=== PATIENT | female | born 1960 | race Caucasian/White ===

== ENCOUNTER 2024-09-14 12:42 | Emergency (ER) | payer OTHER ==
[~2024-09-14] VITALS: Ht 165.1 cm; Wt 52.8 kg
--- NOTE | 2024-09-14 13:12 | ELECTROCARDIOGRAPH REPORT ---
[facility] Test Date: 2024-09-14 Test Time: 13:10:16 Pat Name: ALMA EDEN Department: EMERGENCY ROOM Room: Gender: F Claim Inspector: : [id number] Requested By: DARIUS DOCKERY Order Number: [id number] Reading MD: Dr. Luis Lino Measurements Intervals [place] Rate: 71 P: 78 NH: 163 QRS: 82 QRSD: 83 T: 58 QT: 375 QTc: 408 Interpretive Statements Sinus rhythm Borderline right axis deviation Electronically Signed On 09-14-2024 18:22:[address] Luis Lino Please click the below link to view image of tracing.
[2024-09-14 13:18] LABS: BASOPHILS % (AUTO) 0.4 % (0-1); EOSINOPHILS # (AUTO) 0.2 X10'3 (0-0.9); EOSINOPHILS % (AUTO) 1.9 % (0-6); HEMATOCRIT 42.4 % (35.0-45.0); MEAN CORPUSCULAR HEMOGLOBIN 29.9 PG (27.0-31.0); MEAN CORPUSCULAR HGB CONC 33.1 g/dL (33.0-36.5); MEAN CORPUSCULAR VOLUME 90.1 FL (78-98); MEAN PLATELET VOLUME 9.2 FL (7.4-10.4); MONOCYTES # (AUTO) 0.9 X10'3 (0-0.9); MONOCYTES % (AUTO) 8.2 % (2-12); NEUTROPHILS # (AUTO) 7.4 X10'3 (1.8-7.7); NEUTROPHILS % (AUTO) 70.5 % (42-75); PLATELET COUNT 180 X10'3 (140-440); RED CELL DISTRIBUTION WIDTH 15.5 % (11.5-14.5); WHITE BLOOD COUNT 10.4 X10'3 (4.5-11.0)
[2024-09-14 13:30] LABS: ALBUMIN 3.7 G/DL (3.4-5.0); BLOOD UREA NITROGEN 16 MG/DL (7-18); BUN/CREATININE RATIO 15.7 (10.0-20.0); CALCIUM 9.5 MG/DL (8.5-10.1); CHLORIDE 104 MMOL/L (99-107); CREATININE 1.02 MG/DL (0.40-0.90); GLUCOSE 111 MG/DL (70-104); POTASSIUM 3.4 MMOL/L (3.5-5.1); TOTAL CARBON DIOXIDE 29.5 MMOL/L (24-32); eCRCL 47 ML/MIN; eGFR 55 ML/MIN
[2024-09-14 13:40] LABS: ANION GAP 6 (8-16); SODIUM 139 MMOL/L (135-145)
--- NOTE | 2024-09-14 14:01 | RADIOLOGY REPORT ---
EXAM: DI CHEST,SINGLE VIEW Indication: CP Technique: Single frontal view of the chest was obtained Comparison: None FINDINGS: Lines and Tubes: None Lungs: No focal consolidation. Pleura: No effusion. No pneumothorax. Cardiomediastinal contours: Unremarkable. Atherosclerotic vascular calcifications of the thoracic ao rta are noted. Bones: No acute osseous abnormality. IMPRESSION: No acute cardiopulmonary disease.
--- NOTE | 2024-09-14 15:56 | Physician Documentation ---
History of Present Illness ~ General Chief Complaint: Multiple Medical Complaints Stated Complaint: MULTIPLE MED COMPLAINTS Time Seen by MD: 13:05 OK to notify your PCP?: Yes Primary Medical Doctor: jovanni Mode of Arrival: POV History of Present Illness Initial Comments 64-year-old lady came to the emergency room because of palpitation earlier today. She also have occasional shortness a breath. She has COPD and she only smoked one cigarette a day. She does not use home oxygen. Patient does not endorse chest pain, abdominal pain, nausea vomiting and fever and chills. Medication Reconciliation Allergies: Coded Allergies: morphine (Verified Allergy, Unknown, 09/14/24) Past Medical History Smoking Status: Current every day smoker Review of Systems ROS As stated above in the HPI, otherwise all systems are reviewed and negative. Physical Exam Physical Exam Vital Signs: Heart Rate: 61, Respiratory Rate: 16, BP: 136/81, Pulse Oximetry: 96, Weight: 52.800 Oxygen Flow Rate: 0 Physical Exam Reviewed vital signs and they are well within normal range. CONST: Not in acute cardiopulmonary distress HEAD: ATRAUMATIC EYES: NORMAL CONJUNCTIVA ENT: NORMAL EXTERNAL EARS, NOSE AND MOUTH. Moist mucous membrane NECK: FULL RANGE OF MOTION. NO MENINGISMUS RESP: Mildly diminished breath sounds BILATERALLY. NORMAL WORK OF BREATHING CARDIO: REGULAR RATE AND RHYTHM, NO MURMURS. SKIN WELL PERFUSED, heart rate is 72 beats per minute ABD: SOFT, NON-TENDER, NON-DISTENDED. NORMAL BOWEL SOUNDS. NO REBOUND OR GUA RDING SKIN: NO PETECHIAE OR RASHES. WARM AND DRY BACK: NO MIDLINE OR FLANK TENDERNESS EXT: NO CYANOSIS, OR EDEMA NEURO: AWAKE AND ALERT PSYCH: NORMAL MOOD AND AFFECT Progress Results/Orders Results/Orders Vital Signs 09/14/24 09/14/24 09/14/24 09/14/24 12:50 13:10 14:30 15:32 Pulse 82 59 61 Resp 16 16 16 B/P (MAP) 111/74 128/81 (97) 136/81 (99) Pulse Ox 96 95 96 O2 Flow Rate 0 0 0 Laboratory Tests Test 09/14/24 13:08 White Blood Count 10.4 Red Blood Count 4.70 Hemoglobin 14.0 Hematocrit 42.4 Mean Corpuscular Volume 90.1 Mean Corpuscular Hemoglobin 29.9 Mean Corpuscular Hemoglobin Concent 33.1 Red Cell Distribution Width 15.5 H Platelet Count 180 Mean Platelet Volume 9.2 Neutrophils (%) (Auto) 70.5 Lymphocytes (%) (Auto) 19.0 L Monocytes (%) (Auto) 8.2 Eosinophils (%) (Auto) 1.9 Basophils (%) (Auto) 0.4 Neutrophils # (Auto) 7.4 Lymphocytes # (Auto) 2.0 Monocytes # (Auto) 0.9 Eosinophils # (Auto) 0.2 Basophils # (Auto) 0.0 CBC Comment Sodium Level 139 Potassium Level 3.4 L Chloride Level 104 Carbon Dioxide Level 29.5 Anion Gap 6 L Blood Urea Nitrogen 16 Creatinine 1.02 H Estimated GFR/1.73 m2 55 BUN/Creatinine Ratio 15.7 Glucose Level 111 H Calcium Level 9.5 Troponin I High Sensitivity 4 Albumin 3.7 Chemistry Comments Medical Decision Making Findings During the physical examination, the findings suggestive of acute life- threatening condition such as JVD, tracheal deviation, acidotic breathing, noisy stridorous breath sounds, pulses paradoxus, muffled heart sounds, unequal breath sounds, abdominal rigidity and rebound tenderness, focal neurological deficits, cool clammy skin, severe hypotension, severe tachycardia or bradycardia are absent. Patient is not in acute cardiopulmonary distress in her heart rate is normal sinus rhythm. ED MD interpretation of EKG done at 13:10 hours shows sinus rhythm at a rate of 71 with normal axis normal intervals and no ischemic changes. CBC and CMP are well within normal range and trop is four. Chest x-ray does not show any acute changes. As the patient is feeling much improved and no more episode of palpitation the patient is discharged from the emergency room with instruction to follow with primary care provider and should she have more palpitation she will probably need event monitor occupational health technician. In the meantime I will put her on slow magnesium. DISCLAIMER Inadvertent spelling and grammatical errors,inadvertent bottom pounder cement shoes errors,syntax errors, grammatical errors, and spelling errors are likely due to EMR/dictation software use and do not reflect on the overall quality of patient care. Note that the electronic time recorded on this note does not necessarily reflect the actual time of the patient encounter. Departure Disposition: HOME / SELF CARE / HOMELESS Impression: Primary Impression: Palpitation Additional Impression: COPD (chronic obstructive pulmonary disease) Discharge Instructions: Palpitations, [id number] Additional Instructions: Thank you for coming to our Emergency Department today. It is advisable to cut back caffeine intake to moderation if you are consuming quite a bit of coffee. Please take as low magnesium twice a day as instructed. It is important that you follow up with your primary care provider and if you have frequent episode then you probably will need to see poultry cutter for monitor occupational health technician. Please ask your nurse or provider if you have questions about your care today and do not leave until all your questions have been answered. Please use any medications given as directed and follow-up with your doctor (or the doctor you were referred to) in the next 1-3 days. Your primary care doctor can help to coordinate outpatient specialty care and provide authorization for specialty referral as needed. If you do not have a primary care doctor you may follow up at a [facility]. You may also use motrin and tylenol as needed for fever and/or pain unless instructed otherwise by your provider or nurse. Indications for more urgent follow-up have been discussed, but you may return to the Emergency Department at ANY time for any worrisome or worsening symptoms. Referrals: NO PRIMARY CARE PROVIDER (PCP) Prescriptions Magnesium Chloride (Slow-Mag) 71.5 Mg Tablet.dr 1 TAB PO Q12H for 30 Days, #60 TAB 0 Refills Prov: ROSY GRACE MD 09/14/24 Education Educated: Patient Educated regarding: diagnosis, treatment, need for follow up Signature Scribe Signature: None Attestation: My dictation ROSY GRACE MD Sep 14, 2024 15:56
[2024-09-14] MEDS ORDERED: MAGN64TA8 PO (15:59)
[2024-09-14 16:11] VITALS: BP 136/81; PULSE 61; RESP 16; TEMP 98; O2SAT 96
== END 2024-09-14 16:11 | disposition home or self-care (01) ==
LOC: ER 12:43
DX: R00.2 Palpitations (principal); J44.9 Chronic obstructive pulmonary disease, unspecified; F17.210 Nicotine dependence, cigarettes, uncomplicated; Z88.5 Allergy status to narcotic agent
CPT/HCPCS: 36415; 71045; 80048; 84484; 85025; 93005; 99285